=== PATIENT | female | born 1935 | race Two or more races ===

== ENCOUNTER 2019-04-02 04:35 | Emergency (ER) | payer OTHER ==
[~2019-04-02] VITALS: Ht 152.4 cm; Wt 46.3 kg
--- NOTE | 2019-04-02 04:45 | NUR ---
Patient brought in by ambulance from home. patient chief complaint of epigastric pain that began at 0200. Patient stated she had carne asada, papaya, sliced cucumber with toma and rice before the pain. Patient states she is very cold, temperature was within normal range. patient is only [place] speaking, Stefani, frankfurter inspector, at bedside to help translate.
[2019-04-02] MEDS ORDERED: IV NORMAL SALINE 1000 ML BAG IV ONE (05:00)
[2019-04-02] MEDS ORDERED: MORPHINE SULFATE 2 MG/1 ML DISP.SYRIN IV ONE (05:00)
--- NOTE | 2019-04-02 05:12 | NUR ---
Pt provided urine sample, sent to lab.
[2019-04-02 05:27] LABS: BASOPHILS % (AUTO) 0.2 % (0.0-2.0); EOSINOPHILS % (AUTO) 0.4 % (0.0-7.0); HEMATOCRIT 35.4 % (31.2-41.9); HEMOGLOBIN 12.2 g/dL (10.9-14.3); LYMPHOCYTES # (AUTO) 0.9 K/uL (20.0-40.0); LYMPHOCYTES % (AUTO) 8.6 % (20.5-51.5); MEAN CORPUSCULAR HEMOGLOBIN 33.1 uug (24.7-32.8); MEAN CORPUSCULAR HGB CONC 35 g/dL (32.3-35.6); MONOCYTES # (AUTO) 0.4 K/uL (2.0-10.0); MONOCYTES % (AUTO) 4.1 % (0.0-11.0); NEUTROPHILS # (AUTO) 8.7 K/uL (1.8-8.9); NEUTROPHILS % (AUTO) 86.7 % (38.5-71.5); PLATELET COUNT (AUTO) 191 K/uL (179-408); RED BLOOD CELL COUNT(AUTO) 3.69 MIL/uL (3.63-4.92); WHITE BLOOD COUNT (AUTO) 10.1 K/uL (3.8-11.8)
[2019-04-02 05:30] LABS: *BILIRUBIN,URIN NEGATIVE (NEGATIVE); *CLARITY,URINE CLEAR (CLEAR); *COLOR,URINE YELLOW (YELLOW); *KETONES,URINE NEGATIVE (NEGATIVE); *UROBILINOGEN,URINE 0.2 E.U./dl (NORMAL); LEUKOCYTE ESTERASE ,URINE 1+ (NEGATIVE); NITRITE, URINE NEGATIVE (NEGATIVE); PH,URINE 5.5 (5.0-8.0); UGLUCOSE TRACE (NEGATIVE)
--- NOTE | 2019-04-02 05:30 | NUR ---
patient taken down to radiology department via [facility] with Allan shaikh.
[2019-04-02 05:33] LABS: *BLOOD, URINE TRACE (NEGATIVE)
[2019-04-02 05:34] LABS: BACTERIA,URINE FEW /HPF (NONE SEEN); RBC,URINE 0-3 /HPF (0-3); SQUAMOUS EPITHELIAL CELL,UR FEW /HPF (NONE SEEN)
[2019-04-02] MEDS ORDERED: MORPHINE SULFATE 2 MG/1 ML DISP.SYRIN ONE (05:51)
[2019-04-02 05:58] LABS: CARBON DIOXIDE 25 mmol/L (21-32); CHLORIDE 99 mmol/L (98-107); CREATININE 0.7 mg/dL (0.6-1.3); GLUCOSE 114 mg/dL (74-106); POTASSIUM 3.2 mmol/L (3.5-5.1); UREA NITROGEN, BLOOD 21 mg/dL (7-18)
[2019-04-02 06:04] LABS: ALANINE AMINOTRANSFERASE 37 U/L (14-59); ALKALINE PHOSPHATASE 67 U/L (50-136); ASPARTATE AMINOTRANSFERASE 46 U/L (15-37); BILIRUBIN,DIRECT 0.1 mg/dL (0.0-0.2); BILIRUBIN,TOTAL 0.3 mg/dL (0.2-1.0); TOTAL PROTEIN, SERUM 7.5 g/dL (6.4-8.2)
[2019-04-02 06:31] LABS: LIPASE > 6000 U/L (73-393)
--- NOTE | 2019-04-02 07:03 | NUR ---
Report given to Cliff Crow RN.
--- NOTE | 2019-04-02 07:10 | NUR ---
Dr Oconnor at the bedside disscussing plan of care w/ pt.
[2019-04-02] MEDS ORDERED: MORPHINE SULFATE 4 MG/1 ML DISP.SYRIN IV ONE (07:15)
[2019-04-02] MEDS ORDERED: ONDANSETRON 4 MG/2 ML VIAL IV ONE (07:15)
[2019-04-02] MEDS ORDERED: MORPHINE SULFATE 4 MG/1 ML DISP.SYRIN ONE (07:17)
[2019-04-02] MEDS ORDERED: ONDANSETRON 4 MG/2 ML VIAL ONE (07:17)
--- NOTE | 2019-04-02 07:28 | NUR ---
Dr Oconnor spoke to Dr Mccarthy( [place] ) per [facility] transfer.
--- NOTE | 2019-04-02 07:30 | NUR ---
Dr Dyer provided [facility] # [id number]. [facility], transfer info.
--- NOTE | 2019-04-02 08:50 | NUR ---
Called report to [facility], and spoke to rn hemodialysis charge Julia. Report provided for transfer diagnostic cardiac sonographer.
--- NOTE | 2019-04-02 09:00 | NUR ---
Pt left ER in stable condition by pvt ambulance, all belongings sent w/ pt.
== END 2019-04-02 09:14 | disposition short-term general hospital (02) ==
LOC: ER 04:38
DX: K85.90 Acute pancreatitis without necrosis or infection, unspecified (principal); Z88.6 Allergy status to analgesic agent
CPT/HCPCS: 36415; 71045; 74176; 80048; 80076; 81000; 81001; 83690; 84484; 85025; 85730; 87086; 93005; 96374; 96375; 96376; 99285; J2270 ×2; J2405; 70030-TC; A4663; J7030